=== PATIENT | male | born 1960 | race Two or more races ===

== ENCOUNTER 2018-12-27 17:53 | Emergency (ER) | payer MEDICAID ==
[~2018-12-27] VITALS: Ht 177.8 cm; Wt 68.0 kg
--- NOTE | 2018-12-27 17:58 | NUR ---
ED Nurse Note: Pt BIBA due to losing consciousness at the [facility]. According to EMS, pt was drinking alot at the [employer] and loss consciousness. According to the sister, he turned purple, and family members performed the Heimlich. Pt regained consciousness after intervention. Pt presents in the ER A + O x4. Skin warm to touch. Ambulatory. No complaints of pain.
[2018-12-27 18:01] VITALS: BP 136/89
--- NOTE | 2018-12-27 18:20 | Emergency Room Report ---
History of Present Illness General Chief Complaint: Syncope Source: Patient, Family Member Present Illness HPI 58-year-old male brought in by EMS after witnessed syncopal episode. Patient reportedly had been coughing during eating. Family member subsequently thought that he may be choking on food and initiated the Heimlich maneuver. Patient recent alcohol use. He denies any current complaints. Patient had a syncopal episode during Heimlich maneuver. Patient subsequently regained consciousness after approximately 2 minutes. Allergies: Coded Allergies: No Known Allergies (Unverified , 12/27/18) Patient History Past Medical History: see triage record Reviewed Nursing Documentation: PMH: Agreed; PSxH: Agreed Nursing Documentation-PMH Past Medical History: No Stated History Review of Systems All Other Systems: negative except mentioned in HPI Physical Exam Vital Signs Date Time Temp Pulse Resp B/P (MAP) Pulse Ox O2 Delivery O2 Flow Rate FiO2 12/27/18 17:48 97.9 77 16 128/83 97 Room Air Sp02 EP Interpretation: reviewed, normal General Appearance: normal inspection, well appearing, no apparent distress, alert, GCS 15 Head: atraumatic ENT: normal ENT inspection, hearing grossly normal, normal voice Neck: normal inspection, full range of motion, supple, no bony tend Respiratory: normal inspection, lungs clear, normal breath sounds, no respiratory distress, no retraction, no wheezing Cardiovascular #1: regular rate, rhythm, no edema Gastrointestinal: normal inspection, normal bowel sounds, non tender, soft, no guarding, no hernia Genitourinary: no CVA tenderness Musculoskeletal: normal inspection, back normal, normal range of motion Neurologic: normal inspection, alert, responsive, speech normal Psychiatric: normal inspection, judgement/insight normal, mood/affect normal Skin: normal inspection, normal color, no rash Medical Decision Making Last Vital Signs Date Time Temp Pulse Resp B/P (MAP) Pulse Ox O2 Delivery O2 Flow Rate FiO2 12/27/18 18:01 97.9 72 15 136/89 100 Room Air Scripts No Active Prescriptions or Reported Meds Erick Guido MD Dec 27, 2018 18:20
[2018-12-27 18:38] LABS: BASOPHILS % (AUTO) 2.1 % (0.0-2.0); EOSINOPHILS % (AUTO) 5.6 % (0.0-3.0); HEMATOCRIT 31.7 % (42.0-52.0); HEMOGLOBIN 9.6 G/DL (14.2-18.0); LYMPHOCYTES % (AUTO) 40.9 % (20.0-45.0); MEAN CORPUSCULAR VOLUME 83 FL (80-99); NEUTROPHILS % (AUTO) 45.4 % (45.0-75.0); PLATELET COUNT 172 K/UL (150-450); RED BLOOD COUNT 3.83 M/UL (4.70-6.10); RED CELL DISTRIBUTION WIDTH 18.6 % (11.6-14.8); WHITE BLOOD COUNT 4.3 K/UL (4.8-10.8)
[2018-12-27 18:44] LABS: ANION GAP 11 mmol/L (5-15); BLOOD UREA NITROGEN 7 mg/dL (7-18); CARBON DIOXIDE 26 MMOL/L (21-32); CHLORIDE 109 MMOL/L (98-107); CREATININE 0.7 MG/DL (0.55-1.30); POTASSIUM 3.6 MMOL/L (3.5-5.1); SODIUM 146 MMOL/L (136-145)
[2018-12-27 18:49] LABS: ALANINE AMINOTRANSFERASE 60 U/L (12-78); ALBUMIN 3.4 G/DL (3.4-5.0); ALBUMIN/GLOBULIN RATIO 0.8 (1.0-2.7); ALKALINE PHOSPHATASE 125 U/L (46-116); ASPARTATE AMINO TRANSFERASE 130 U/L (15-37); BILIRUBIN,TOTAL 0.3 MG/DL (0.2-1.0)
--- NOTE | 2018-12-27 19:07 | NUR ---
HAND-OFF: Report given to SARTHAK Franco.
[2018-12-27 19:36] VITALS: BP 136/89
--- NOTE | 2018-12-27 19:36 | NUR ---
ED Nurse Note: patient discharged.
--- NOTE | 2018-12-28 18:02 | Cardiology Report ---
APPROVED REPORT EKG Measurement Heart [id number] Normal sinus rhythm Normal ECG
== END 2018-12-27 19:36 | disposition home or self-care (01) ==
LOC: EDBD 17:53 → EMR 19:30
DX: R55 Syncope and collapse (principal); R05 Cough
CPT/HCPCS: 36415; 80053; 85025; 85610; 85730; 93005; 99283